=== PATIENT | male | born 1995 | race American Indian/Alaskan Native ===

== ENCOUNTER 2019-04-10 20:09 | Emergency (ER) | payer SELFPAY ==
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
[2019-04-10 20:25] VITALS: BP 108/66
--- NOTE | 2019-04-10 20:57 | XRay Report ---
LEFT SHOULDER 4 VIEWS INDICATION: left shoulder and left clavicle pain. COMPARISON: No relevant prior imaging study available. FINDINGS: There is a transverse fracture through the distal left clavicle diaphysis with significant inferior d isplacement of the distal fracture fragment approximately 2-2.5 cm. There is no AC separation. No add itional fractures are seen. IMPRESSION: 1. Distal/lateral left clavicle diaphyseal fracture with significant displacement. Signer Name: Júnior Abbasi MD Signed: 04/10/2019 8:52 PM Workstation Name: [id number]
[2019-04-10] MEDS ORDERED: NORCO 5/325 PO ONE (21:28)
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
== END 2019-04-10 21:44 | disposition home or self-care (01) ==
LOC: ED 20:09
DX: S42.022A Displaced fracture of shaft of left clavicle, initial encounter for closed fracture (principal); F12.10 Cannabis abuse, uncomplicated; Z88.1 Allergy status to other antibiotic agents; Z88.6 Allergy status to analgesic agent; X58.XXXA Exposure to other specified factors, initial encounter; Y93.89 Activity, other specified; Y92.89 Other specified places as the place of occurrence of the external cause; Y99.8 Other external cause status